=== PATIENT | female | born 1935 | race Caucasian/White ===

== ENCOUNTER 2017-03-09 07:37 | Day surgery (SDC) | payer OTHER, BC ==
[2017-03-08 10:35] VITALS: BMI 23.3
--- NOTE | 2017-03-08 16:01 | HP ---
- Patient Scheduled date of Surgery: 03/09/17 Scheduled Surgical Procedure: Phacoemulsification and cataract extraction with PCIOL Affected Eye: Left Chief Complaint (Indication for surgery): Decreased vision affecting ADLs - Ocular History Other Eye History: Other (iritis OD and corneal edema od) Eye Medications: tobramycin 0/4, alphagan p (2/2) Previous Eye Surgery: none - Medical History Illnesses: Hypercholesterolemia, Other (leukocytoclastic vasculitis (limited ambar's), breast CA s/p lumpectomy , and chemo 2004, hypothyroid) Current Medications: Ambulatory Orders Cyanocobalamin Vit B-12 Inj. [Redisol] 1,000 mcg IJ MONTHLY 03/08/17 Levothyroxine [Synthroid -] 88 mcg PO DAILY 03/08/17 Allergies/Adverse Reactions: Allergies Allergy/AdvReac Type Severity Reaction Status Date / Time clindamycin Allergy "DIARRHEA" Verified 03/08/17 10:41 levofloxacin [From Levaquin] Allergy "COULDN'T Verified 03/08/17 10:41 FEEL LEGS" morphine Allergy "VOMITING" Verified 03/08/17 10:41 Ocular Examination - Best Corrected Visual Acuity Distance: Right eye: 20/40 Distance: Left eye: 20/40 - External/Slit Lamp Examination Abnormalities: decreased TBUT, k irregular tear film superiorly - Intraocular Pressure Intraocular Pressure - Right eye: 16 Intraocular Pressure-Left eye: 16 - Lens Lens: 2+ NS 2+ cortical - Vitreous/Retina Vitreous/Retina: c:d 0.9 m /v/ p wnl - Special Examination M - Right eye: -1.25 -0.75 x 080 M - Left eye: +0.50 -2.50 x 090 K - Right eye: 44/46 x180 K - Left eye: 44/46 x 165 AL - Right eye: 22.94 AL - Left eye: 23.17 IOL bag: +20.5 d SN6AT 3 @ 168 or +19.5 d hoya 251 IOL sulcus: +18.50 hoya 231 IOL AC: +16.5 mta 4uo - Impression Impression: Cataract Left Eye, Other - Plan Plan: Phacoemulsification and cataract extraction - IOL Left eye (trypand and 1 : 10,000 epi) Post-hospital care will be provided in office on: 03/10/17
--- NOTE | 2017-03-08 16:02 | HP ---
History & Physical Update - History History: No Change - Physical Physical: No Change - Assessment Assessment: No Change - Plan Plan: No Change
[~2017-03-09 07:37] MED LIST: ACETAMINOPHEN 325 MG TABLET (FP) PO PRN; TOBRAMYCIN 0.3% OPHTH SOLN 5 ML BOTTLE OS ONE; TOBRAMYCIN/DEXAMETHASONE OPHTH. OINTMENT 1 TUBE OS ONE
[2017-03-09] MEDS ORDERED: LIDOCAINE HCL/PF 1% SDV 5ML VIAL ONE (07:52)
[2017-03-09] MEDS ORDERED: TOBRAMYCIN/DEXAMETHASONE OPHTH. OINTMENT 1 TUBE ONE (07:52)
[2017-03-09] MEDS ORDERED: LIDOCAINE HCL 2% JELLY (5 ML/TUBE) ONE (07:52)
[2017-03-09] MEDS ORDERED: EPINEPHrine/PF 1 MG/1 ML (1:1,000) AMPULE ONE ×2 (07:52→09:38)
[2017-03-09] MEDS ORDERED: TROPICAMIDE 1% OPHTH SOLN 15 ML BOTTLE ONE ×2 (08:02→08:04)
[2017-03-09] MEDS ORDERED: DICLOFENAC SODIUM 0.1% OPHTHALMIC 2.5ML BOTTLE ONE (08:04)
[2017-03-09] MEDS ORDERED: PHENYLEPHRINE 2.5% OPHTH SOLN 15 ML BOTTLE ONE (08:04)
[2017-03-09] MEDS: PHENYLEPHRINE 2.5% OPHTH SOLN 15 ML BOTTLE OP SCH ×3 (08:15→08:47)
[2017-03-09] MEDS: DICLOFENAC SODIUM 0.1% OPHTHALMIC 2.5ML BOTTLE OP SCH ×3 (08:15→08:46)
[2017-03-09] MEDS: TROPICAMIDE 1% OPHTH SOLN 15 ML BOTTLE OP SCH ×3 (08:15→08:47)
[2017-03-09 08:22] VITALS: TEMP 97.5
[2017-03-09] MEDS ORDERED: MIDAZOLAM HCL 2 MG/2 ML SINGLE DOSE VIAL ONE (09:18)
[2017-03-09] MEDS ORDERED: LIDOCAINE HCL 2% JELLY (5 ML/TUBE) TP ONE (09:28)
[2017-03-09] MEDS ORDERED: POVIDONE-IODINE 5% OPHTHALMIC PREP 30 ML SOLUTION OS ONE (09:46)
[2017-03-09] MEDS ORDERED: LIDOCAINE HCL 1% PRESERVATIVE FREE - 30ML VIAL IO ONE (10:08)
[2017-03-09] MEDS ORDERED: CHONDROITIN SU A/HYALUR SOD 1 KIT IO ONE ×2 (10:08)
[2017-03-09] MEDS ORDERED: BSS (NA/CA/MG/K) BALANCED SALT SOLUTION OPHTH SOLN 15 ML BOTTLE OS ONE (10:08)
[2017-03-09] MEDS ORDERED: EPINEPHrine/PF 1 MG/1 ML (1:1,000) AMPULE SQ ONE ×2 (10:08→10:15)
[2017-03-09] MEDS ORDERED: TRYPAN BLUE 0.5 ML DISP.SYRIN IO ONE (10:08)
[2017-03-09] MEDS ORDERED: TOBRAMYCIN/DEXAMETHASONE OPHTH. OINTMENT 1 TUBE OS ONE (10:41)
--- NOTE | 2017-03-09 10:49 | OP ---
Ophthalmology Operative Note Pre-Operative Diagnosis: Cataract Affected Eye: Left Operation: Phacoemulsification and cataract extraction with PCIOL (toric) Findings: cataract left eye Post-Operative Diagnosis: Same as Pre-op Sintering Press Operator: None Anesthesiologist: Kyrie Duggan Anesthesia: Topical Specimens Removed: none Estimated blood loss: none Operative Report Dictated: Yes
[2017-03-09] MEDS ORDERED: SCOPOLAMINE HYDROBROMIDE 1 PATCH PATCH.TD72 ONE (11:23)
[2017-03-09] MEDS ORDERED: SCOPOLAMINE HYDROBROMIDE 1 PATCH PATCH.TD72 TD SCH (11:30)
[2017-03-09 13:18] VITALS: BP 147/89; PULSE 80
--- NOTE | 2017-03-09 15:52 | OP ---
DATE OF OPERATION: 03/09/2017 PREOPERATIVE DIAGNOSIS: Cataract, left eye. POSTOPERATIVE DIAGNOSIS: Cataract, left eye. PROCEDURE: Phacoemulsification and cataract extraction with insertion of posterior chamber intraocular lens, toric lens, left eye. SURGEON: Jacy Saleh MD RIPSAW OPERATOR: None. ANESTHESIA: Topical. ANESTHESIOLOGIST: Kyrie Duggan CRNA OPERATIVE PROCEDURE: Before the patient was brought to the operating room, the eye was marked with the patient sitting upright. The 6 o'clock meridian as well as the 9 o'clock and 3 o'clock meridians was marked with marking pen. Patient received light sedation and then was given viscous lidocaine jelly into the left eye. The patient was then prepped and draped so as to expose only the left eye in the usual sterile fashion. Ophthalmic Betadine was instilled into the inferior fornix. The lashes were taped out of the surgical field. An eyelid speculum was placed into the left eye. A paracentesis was made in inferior clear cornea at the limbus. Next, 0.5 mL of nonpreserved lidocaine was injected into the anterior chamber, and 1 mL of dilute epinephrine (that is 1:10,000 dilution) was injected into the anterior chamber. Then, an air bubble was placed into the anterior chamber, and trypan blue was dripped on the anterior capsular edge. Viscoelastic material was then instilled into the anterior chamber via the paracentesis. A 2.4-mm keratome was then used to create the main incision in temporal clear cornea at the limbus. A continuous curvilinear capsulorrhexis was performed using cystotome and Utrata forceps. Hydrodissection of the lens cortex was performed using BSS on a cannula until the nucleus was noted to be freely rotating. The phacoemulsification tip was inserted via the main wound and used to sculpt 2 perpendicular grooves into the lens nucleus. Viscoat was injected into the grooves, and a nucleus cracker was used to crack the lens into 4 quadrants. Each quadrant was lifted out of the capsule into the iris plane and individually phacoemulsified. The remaining cortical material was then aspirated using the irrigation and aspiration port. The capsular bag was inflated with Provisc, and a toric lens model SN6AT3 +20.5 diopters was injected into the capsular bag. So, at this stage, the toric marker set was used to delineate a kelechi at the 168-degree meridian, and the [place]as [place] on the toric lens were then aligned with the markings of 168 degrees. The remaining viscoelastic material was removed from the anterior chamber using irrigation and aspiration, and the toric lens was placed in its final position at 168 degrees. The wound edges were hydrated using BSS. The wound was tested for leakage and was found to be watertight. Therefore, TobraDex ointment was placed in the eye. The speculum was removed from the eye, and the eyelid was closed. A sterile dressing and shield were placed over the eye, and the patient was transferred to the recovery room in stable condition, told to follow up in 1 day. Zhen [id number]
== END 2017-03-09 13:19 | disposition home or self-care (01) ==
LOC: JASU-SURG 07:37 → EDBD 08:30 → JASU-SURG 13:19
PROVIDERS: ATTEND Ophthalmology
PROC: 08RK3JZ Replacement of Left Lens with Synthetic Substitute, Percutaneous Approach (ICD-10-PCS; principal; 2017-03-09 09:30)
DX: H26.9 Unspecified cataract (principal)